=== PATIENT | female | born 1980 | race Caucasian/White ===

== ENCOUNTER → 2017-02-20 | Outpatient (CLI) | payer OTHER | LOC: FIMAGING 10:07 | PROVIDERS: ATTEND Nurse Practitioner Adult Health | DX: Z12.39 Encounter for other screening for malignant neoplasm of breast (principal); N63.20 Unspecified lump in the left breast, unspecified quadrant | CPT/HCPCS: G0204 ==

== ENCOUNTER 2017-10-19 08:21 | Day surgery (SDC) | payer OTHER ==
[2017-10-19] MEDS ORDERED: LR 1,000 ML IV ONE (08:34)
[2017-10-19] MEDS ORDERED: ceFAZolin 2 GM/DEXTROSE 100 ML IV ONE (08:34)
--- NOTE | 2017-10-19 09:28 | PDANEPAE ---
ANE Past Medical History - Cardiovascular History Hx Hypertension: No Hx Arrhythmias: No Hx Chest Pain: No Hx Coronary Artery / Peripheral Vascular Disease: No Hx CHF / Valvular Disease: No Hx Palpitations: No - Pulmonary History Hx COPD: No Hx Asthma/Reactive Airway Disease: No Hx Recent Upper Respiratory Infection: No Hx Oxygen in Use at Home: No Hx Sleep Apnea: No Sleep Apnea Screening Result - Last Documented: Negative - Neurologic History Hx Cerebrovascular Accident: No Hx Seizures: No Hx Dementia: No - Endocrine History Hx Diabetes: No - Renal History Hx Renal Disorders: No - Liver History Hx Hepatic Disorders: No - Neurological & Psychiatric Hx Hx Neurological and Psychiatric Disorders: No Neurological / Psychiatric History Comment: SITUATIONAL ANXIETY - Cancer History Hx Cancer: No - Congenital Disorder History Hx Congenital Disorders: No - GI History Hx Gastrointestinal Disorders: No - Other Health History Other Health History: SEASONAL/ENVIRONMENTAL ALLERGIES. DERMATITIS. LIPOMAS - Chronic Pain History Chronic Pain: No - Surgical History Prior Surgeries: RT KNEE SCOPE. RT LIGAMENT/PATELLA. LT KNEE SCOPE ANE Review of Systems Review of Systems: - Exercise capacity METS (RN): 4 METS ANE Patient History - Allergies Allergies/Adverse Reactions: No Known Allergies Allergy (Unverified 11/01/14 16:21) - Home Medications Home Medications: ALPRAZolam PRN 10/16/17 [Last Taken 10/18/17] Herbals/Supplements -Info Only DAILY 10/16/17 [Last Taken 10/15/17] Hydroxyzine HCl HS 10/16/17 [Last Taken 10/18/17] ZYRTEC DAILY 10/16/17 [Last Taken 10/18/17] - NPO status NPO Since - Liquids (Date): 10/19/17 NPO Since - Liquids (Time): 06:00 NPO Since - Solids (Date): 10/18/17 NPO Since - Solids (Time): 20:00 - Smoking Hx Smoking Status: Heavy smoker - Family Anes Hx Family Hx Anesthesia Complications: NEG ANE Labs/Vital Signs - Vital Signs Blood Pressure: 106/78 Heart Rate: 77 Respiratory Rate: 14 O2 Sat (%): 94 Height: 167.64 cm Weight: 85.275 kg ANE Physical Exam - Airway Mallampati Score: Class 2 - ASA Status ASA Status: II ANE Anesthesia Plan Anesthesia Plan: GA w LMA
[2017-10-19] MEDS ORDERED: MIDAZOLAM 2 MG/2 ML VIAL ONE (09:50)
[2017-10-19] MEDS ORDERED: PROPOFOL 200 MG/20 ML VIAL ONE (09:51)
[2017-10-19] MEDS ORDERED: fentaNYL 100 MCG/2 ML INJ ONE ×2 (09:51→10:39)
[2017-10-19] MEDS ORDERED: ONDANSETRON 4 MG/2 ML VIAL ONE (09:52)
[2017-10-19] MEDS ORDERED: METOCLOPRAMIDE 10 MG/2 ML VIAL ONE (09:52)
[2017-10-19] MEDS ORDERED: LIDOCAINE 2% JELLY 5 ML TUBE ONE (09:52)
--- NOTE | 2017-10-19 10:01 | PDHPUP ---
History & Physical Update H&P update statement: This history and physical update is based on an assessment of the patient which was completed after admission or registration (within 24 hours), but prior to the surgery/procedure. H&P update: H&P reviewed & patient examined, no change in patient's condition since H&P completed (Lipoma left lateral breast and right upper arm examined and marked in pre-op. Questions regarding surgery and recovery discussed)
[2017-10-19] MEDS ORDERED: BUPIVACAINE 0.25% 30 ML SDV ONE (10:04)
[2017-10-19] MEDS ORDERED: NA BICARBONATE 50 MEQ/50 ML VIAL ONE (10:05)
[2017-10-19] MEDS ORDERED: LIDOCAINE 1% 300 MG/30 ML SDV ONE (10:05)
[2017-10-19] MEDS ORDERED: NALOXONE HCL 0.4 MG/ML INJ IVP PRN (11:17)
[2017-10-19] MEDS ORDERED: HYDROmorphONE/DILAUDID 1 MG/ML INJ IVP PRN (11:17)
[2017-10-19] MEDS ORDERED: LR 500 ML IV PRN (11:17)
[2017-10-19] MEDS ORDERED: PROMETHAZINE HCL 25 MG/ML INJ IVP PRN (11:17)
[2017-10-19] MEDS ORDERED: fentaNYL 100 MCG/2 ML INJ IVP PRN (11:17)
--- NOTE | 2017-10-19 11:18 | POSTANESTH ---
Post Anesthetic Evaluation Cardiovascular Status: Normal, Stable Respiratory Status: Normal, Stable Level of Consciousness/Mental Status: Can Participate in Eval Pain Control: Adequate, Prn Tx Ordered Nausea/Vomiting Control: Adequate, Prn Tx Ordered Complications Possibly Related to Anesthesia: None Noted
[2017-10-19] MEDS ORDERED: OXYCODONE/APAP 5/325 TAB PO PRN (11:31)
[2017-10-19] MEDS ORDERED: ONDANSETRON DISINTEGRATING 4 MG TAB PO PRN (11:31)
--- NOTE | 2017-10-19 11:31 | POSTOPPROG ---
Post Op Note Date of Operation: 10/19/17 Surgeon: Eduin Zimmerman (, FACS) Anesthesiologist: Hank Tabares MD Anesthesia: LMA Pre-op Diagnosis: soft tissue tumor left breast, right forearm x 2 Procedure: excision soft tissue tumor left lateral breast + right forearm x 2 Inf/Abcess present in the surg proc area at time of surgery?: No EBL: Minimal (10) Specimen(s): left breast/chest wall soft tissue tumor 6 x 6 x 5 cm, deep right volar forearm tumor 2 x 2 x 1, superficial right posterior forearm tumor 1 x 1 x 1.5 cm, deep
[2017-10-19 11:53] VITALS: BP 103/74
[2017-10-19] MEDS ORDERED: OXYCODONE/APAP 5/325 TAB ONE (11:57)
--- NOTE | 2017-10-19 13:16 | GOP ---
[f rep st] OPERATIVE REPORT DATE OF OPERATION: 10/19/2017 SURGEON: Eduin Zimmerman MD ANESTHESIA: General by laryngeal mask. ANESTHESIOLOGIST: Hank Tabares MD. PREOPERATIVE DIAGNOSIS: 1. Soft tissue tumor, left lateral breast/chest wall. 2. Soft tissue tumor, left volar forearm just below the antecubital fossa. 3. Soft tissue tumor, right posterior forearm. POSTOPERATIVE DIAGNOSIS: PROCEDURE PERFORMED: 1. Excision of soft tissue tumor, left chest/breast, greater than 5 cm, deep. 2. Excision of right posterior forearm soft tissue tumor, less than 3 cm, deep and excision of right volar forearm soft tissue tumor, less than 3 cm, superficial. FINDINGS: 1. Approximately 6 cm fatty tumor in the left lateral chest wall/breast excised and submitted for pe rmanent section. 2. Soft tissue tumors from the right forearm including a firm possibly angiolipoma from the dorsal f orearm excised and submitted individually for permanent section. ESTIMATED BLOOD LOSS: 5 cc. DESCRIPTION OF PROCEDURE: After informed consent was obtained, the patient was brought to the operat ing room and placed under general anesthesia. The left breast and chest wall were prepped and draped in usual fashion. Before proceeding, a time-out and identification of patient was performed. The left lateral chest wall was prepped and draped in the usual fashion. Before proceeding, a time-o ut and identification of the patient was performed. The skin was infiltrated with 0.25% Marcaine and incised transversely in the 3 o'clock position of th e lateral breast just anterior to the latissimus border. Dissection was carried out through skin, bell bcutaneous tissues and superficial fascia. The fatty tumor was excised from the deep subfascial plan e close to the chest wall. It was easily from the surrounding fatty tissue of the lateral breast and did not appear suspicious. It was excised completely and submitted for permanent section. Hemostasis was secured with cautery. Subcutaneous tissues were closed with 3-0 Vicryl suture. Ski n was closed with 4-0 Monocryl suture in a subcuticular fashion. Attention was then directed to the right upper extremity which was prepped and draped in the usual fa shion. The volar surface soft tissue tumor was excised through a 2 cm transverse incision, dissectin g away the underlying cubital venous plexus and cauterizing smaller surface branches of the veins. A fter the tumor had been removed subcutaneous tissues were closed with 3-0 Vicryl suture, skin was jarrett sed with 4-0 Monocryl suture in a subcuticular fashion. The arm was then flexed at the elbow and the dorsal forearm nodule which was more vague in palpation was identified. The skin overlying it was i nfiltrated with Marcaine. A transverse incision was made. Dissection was carried through the skin, subcutaneous tissues and superficial fascia. The posterior forearm nodule was firmer in texture and was more adherent to the surrounding tissue, particularly the fascia surrounding the brachia radialis . As this was carefully excised care was taken to avoid injury to the fascia. The specimen was subm itted separately from the other 2 and could possibly represent an atypical variant of lipoma. Hemost asis was secured with cautery. Subcutaneous tissues were closed with 3-0 Vicryl suture. Skin was cl osed with 4-0 Monocryl suture in a subcuticular fashion. Topical Dermabond was applied. The patient was brought extubated to the recovery room in satisfactory condition. Needle, sponge, and instrumen t count correct. COMPLICATIONS: None. /[id number]/MODL
== END 2017-10-19 12:54 | disposition home or self-care (01) ==
LOC: FSGY 08:21
PROVIDERS: ATTEND Surgery
DX: D17.79 Benign lipomatous neoplasm of other sites (principal); D17.21 Benign lipomatous neoplasm of skin and subcutaneous tissue of right arm; F17.210 Nicotine dependence, cigarettes, uncomplicated
CPT/HCPCS: J0690; J2250; J2405; J2704; J2765; J3010

== ENCOUNTER → 2018-07-23 | Outpatient (CLI) | payer OTHER | LOC: BMCIMAGING 15:06 | PROVIDERS: ATTEND Internal Medicine | DX: M25.552 Pain in left hip (principal) ==